=== PATIENT | female | born 1985 | race Caucasian/White ===

== ENCOUNTER 2017-08-13 19:29 | Emergency (ER) | payer OTHER ==
[~2017-08-13] VITALS: Ht 172.7 cm; Wt 103.9 kg
[2017-08-13] MEDS ORDERED: KETOROLAC 60 MG/2 ML VIAL. IM ONE (20:30)
[2017-08-13 20:43] LABS: BILIRUBIN,URINE NEG (NEG); CLARITY,URINE CLEAR; COLOR,URINE YELLOW; GLUCOSE,URINE NEG (NEG)
[2017-08-13 20:44] LABS: BACTERIA,URINE FEW /HPF (0-FEW); NITRITE,URINE NEG (NEG); SQUAMOUS EPITHELIAL CELL,UR MANY /LPF; TRICHOMONAS,URINE PRESENT; UROBILINOGEN,URINE 0.2 mg/dL (0.2 mg/dL)
--- NOTE | 2017-08-13 21:06 | PHYS DOC ---
Past History Past Medical History: Hypertension Past Surgical History: , Tonsillectomy Alcohol Use: Occasionally Drug Use: None Adult General Chief Complaint Chief Complaint: BACK PAIN OR INJURY [facility] HPI This is a pleasant 32-year-old female otherwise healthy who presents with lower back pain as been bothering her intermittently for last 2 weeks. She describes her back pain as sore achy with no repeat radiation to her lower legs or bottom. Denies any bowel or bladder incontinence, UTI symptoms or vaginal discharge. Patient was ecstasy seen last week by her primary care physician who did a pelvic exam and Pap smear along with a urinalysis and told her she had no signs of infection. Patient says the pain is worse when she bends over or twist. She denies any numbness and tingling or weakness to her lower legs. She has a hard time getting comfortable there is no hematuria, no nausea, no vomiting, no night sweats, no weight loss, no weakness to her lower legs. Pain is moderate as an 8 of 10. Patient denies any trauma or nonaccidental injury at home. Review of Systems Review of Systems Constitutional: Denies fever or chills [] Eyes: Denies change in visual acuity, redness, or eye pain [] HENT: Denies nasal congestion or sore throat [] Respiratory: Denies cough or shortness of breath [] Cardiovascular: No additional information not addressed in HPI [] GI: Denies abdominal pain, nausea, vomiting, bloody stools or diarrhea [] : Denies dysuria or hematuria [] Musculoskeletal: She complains of back pain. Integument: Denies rash or skin lesions [] Neurologic: Denies headache, focal weakness or sensory changes [] Endocrine: Denies polyuria or polydipsia [] Current Medications Current Medications Current Medications Medications (Trade) Dose Ordered Sig/Pancho Start Time Stop Time Status Last Admin Dose Admin Diazepam (Valium) 5 mg 1X ONCE 08/13/17 20:30 08/13/17 20:31 DC Ketorolac Tromethamine (Toradol) 60 mg 1X ONCE 08/13/17 20:30 08/13/17 20:31 DC Allergies Allergies Allergies Coded Allergies Type Severity Reaction Last Updated Verified No Known Drug Allergies 08/13/17 No Physical Exam Physical Exam Vital signs recorded on the chart within normal limits. Constitutional: Well developed, well nourished, no acute distress, non-toxic appearance. [] Neck: Normal range of motion, no tenderness, supple, no stridor. [] Cardiovascular:Heart rate regular rhythm, no murmur [] Lungs & Thorax: Bilateral breath sounds clear to auscultation [] Abdomen: Bowel sounds normal, soft, no tenderness, no masses, no pulsatile masses. [] Skin: Warm, dry, no erythema, no rash. [] Back: She has tenderness to palpation over the erector spinae muscles of the lower lumbar spine L3 and L5 nothing midline. No rash no warmth. There is no gluteal tenderness. Extremities: No tenderness, no cyanosis, no clubbing, ROM intact, no edema. [] Neurologic: Alert and oriented X 3, normal motor function, normal sensory function, no focal deficits noted. [] Psychologic: Affect normal, judgement normal, mood normal. [] Current Patient Data Vital Signs Vital Signs Date Time Temp Pulse Resp B/P (MAP) Pulse Ox O2 Delivery O2 Flow Rate FiO2 08/13/17 19:30 98.8 81 16 97 Room Air Lab Results Laboratory Tests Test 08/13/17 19:41 08/13/17 20:03 Urine Collection Type Unknown Urine Color Yellow Urine Clarity Clear Urine pH 5.5 Urine Specific [place] 1.015 Urine Protein Neg (NEG-TRACE) Urine Glucose (UA) Neg mg/dL (NEG) Urine Ketones (Stick) Trace mg/dL (NEG) Urine Blood Trace (NEG) Urine Nitrite Neg (NEG) Urine Bilirubin Neg (NEG) Urine Urobilinogen Dipstick 0.2 mg/dL (0.2 mg/dL) Urine Leukocyte Esterase Small (NEG) Urine RBC 3-5 /HPF (0-2) Urine WBC 5-10 /HPF (0-4) Urine Squamous Epithelial Cells Many /LPF Urine Bacteria Few /HPF (0-FEW) Urine Trichomonas Present POC Urine HCG, Qualitative hcg negative (Negative) EKG EKG [] Radiology/Procedures Radiology/Procedures [] Course & Med Decision Making Course & Med Decision Making Pertinent Labs and Imaging studies reviewed. (See chart for details) Patient had a urinalysis done here in the emergency department at demonstrates positive Trichomonas. Patient has epithelial cells and other contaminants in her urine and no signs of UTI. Patient also has a negative test. Although she is driving patient was given Toradol and an IM shot of Valium to help with her muscle spasm in her lower back. Doubt cauda equina, doubt renal cell carcinoma or kidney stone, doubt UTI or pyelonephritis but clearly patient has a Trichomonas infection. Patient has no evidence of epidural abscess or hematoma as she's known IV drug user and she has no sequela localized trauma. Patient denies any trauma doubt fracture. [] Dragon Disclaimer Dragon Disclaimer This chart was dictated in whole or in part using Voice Recognition software in a busy, high-work load, and often noisy Emergency Department environment. It may contain unintended and wholly unrecognized errors or omissions. Departure Departure: Impression: Primary Impression: Trichomonas vaginalis infection Additional Impression: Lower back pain Disposition: HOME, SELF-CARE Condition: IMPROVED Referrals: JOSE PARRA MD (PCP) Patient Instructions: Back Pain, Adult, Trichomonas, Test Additional Instructions: My discharge plan Follow up: In addition patient is asked to followup with their primary doctor, within a week for followup examination and to address patient's ongoing medical conditions. Patient is advised that in the Emergency Department primary complaints are addressed and only in light of known signs and symptoms. Patient should return immediately to the emergency department if new signs and symptoms develop or patient's condition worsens in any way. At time of discharge patient was in stable condition and had verbalized understanding of the discharge instructions. Scripts Metronidazole (FLAGYL) 500 Mg Tablet 1 TAB PO BID, #20 TAB Prov: AIMEE SKINNER MD 08/13/17 Acetaminophen (TYLENOL) 325 Mg Tablet 1-2 TAB PO QID, #30 TAB 2 Refills Prov: AIMEE SKINNER MD 08/13/17 Diazepam (VALIUM) 5 Mg Tablet 5 MG PO TID for 5 Days, #15 TAB Please use one tablet every 8 hours as needed for muscle spasms. Do not drink alcohol or use other narcotics with this medication. Prov: AIMEE SKINNER MD 08/13/17 Naproxen (NAPROSYN) 500 Mg Tablet 1 TAB PO BID, #20 TAB 1 Refill Prov: AIMEE SKINNER MD 08/13/17 Problem Qualifiers AIMEE SKINNER MD Aug 13, 2017 21:06
[2017-08-13] MEDS ORDERED: DIAZ5TAB PO (21:33)
[2017-08-13] MEDS ORDERED: METR500T PO (21:33)
[2017-08-13] MEDS ORDERED: ACET325T9 PO (21:33)
[2017-08-13] MEDS ORDERED: NAPR500T PO (21:33)
[2017-08-13 21:43] VITALS: BP 140/78
[2017-08-13] MEDS ORDERED: [UNRECOGNIZED DRUG - OTHER] PO ONE (22:00)
== END 2017-08-13 21:45 | disposition home or self-care (01) ==
LOC: ER 19:29
DX: A59.01 Trichomonal vulvovaginitis (principal); M54.5 Low back pain; I10 Essential (primary) hypertension
CPT/HCPCS: 81001; 81025; 87086; 96372; 99284; J1885